=== PATIENT | female | born 1930 | race American Indian/Alaskan Native ===

== ENCOUNTER 2019-01-13 11:19 | Outpatient (CLI) | payer MEDICARE ==
[2019-01-13 14:29] LABS: Blood Urea Nitrogen 11 mg/dL (7-17)
== END 2019-01-13 11:20 | disposition home or self-care (01) ==
LOC: CT 11:19
PROVIDERS: ATTEND Surgery Vascular Surgery
DX: I74.9 Embolism and thrombosis of unspecified artery (principal); I65.23 Occlusion and stenosis of bilateral carotid arteries; I77.1 Stricture of artery; I10 Essential (primary) hypertension; E66.9 Obesity, unspecified; E78.00 Pure hypercholesterolemia, unspecified; K21.9 Gastro-esophageal reflux disease without esophagitis; E11.9 Type 2 diabetes mellitus without complications; Z90.710 Acquired absence of both cervix and uterus
CPT/HCPCS: 36415; 82565; 84520

== ENCOUNTER 2019-01-14 11:26 | Outpatient (CLI) | payer MEDICARE ==
--- NOTE | 2019-01-15 20:31 | Cat Scan Report ---
PROCEDURE: CT ANGIO NECK TECHNIQUE: Computerized tomographic angiography of the neck was performed after the IV injection of iodinated nonionic contrast including image processing. The image data was postprocessed using 2-dime nsional multiplanar reformatted (MPR) and 3-dimensional (MIP and/or volume rendered) techniques. CT DOSE LENGTH PRODUCT: 561.3 mGycm HISTORY: CTA NECK AND CAROTIDS, STRICTURE OF ARTERY COMPARISONS: None . Note: Assessment of carotid artery stenosis is based on measurement of the distal internal carotid a rtery diameter as the denominator for stenosis calculations and the [place] Symptomatic Caroti d Endarterectomy Trial (NASCET) stenosis criteria. FINDINGS: Sinuses: Normal . Non vascular cervical structures: No significant abnormality . Aortic arch: Normal . Brachycephalic artery: Mild degree stenoses noted involving the origin secondary to a calcified plaqu e. Right subclavian artery: A standard is identified in the proximal portion which appears to be patent. A moderate degree focal stenosis is noted immediately distal to the stent.. Right carotid artery: A 70-99% stenosis is noted involving the origin of internal carotid artery sec ondary to a calcified plaque. . Left carotid artery: 50-69% stenosis is noted at the origin of internal carotid artery secondary to calcified plaque. . Vertebral arteries: Right vertebral artery is occluded at the origin with reconstitution at the leve l of C4 . Moderate degree stenoses noted at the origin of left vertebral artery. Other findings: Small subcentimeter nodules are noted in bilateral lobes of thyroid. Diffuse mucosal thickening is noted involving the right maxillary sinus with evidence of prior surgery. Moderate degr ee of degenerative changes are noted involving the cervical spine. 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 70-99% stenosis proximal right internal carotid 50-69% stenosis proximal left internal carotid Right vertebral artery at the origin Moderate degree stenosis left vertebral artery origin Bilateral thyroid nodules : . This document is electronically signed by Jose Guadalupe Devi MD., January 15 2019 08:30:03 PM ET
== END 2019-01-14 11:27 | disposition home or self-care (01) ==
LOC: CT 11:26
PROVIDERS: ATTEND Surgery Vascular Surgery
DX: I65.23 Occlusion and stenosis of bilateral carotid arteries (principal); I74.9 Embolism and thrombosis of unspecified artery; I77.1 Stricture of artery; E04.1 Nontoxic single thyroid nodule; M47.812 Spondylosis without myelopathy or radiculopathy, cervical region; E11.9 Type 2 diabetes mellitus without complications; E66.9 Obesity, unspecified; I10 Essential (primary) hypertension; E78.00 Pure hypercholesterolemia, unspecified; K21.9 Gastro-esophageal reflux disease without esophagitis; M19.90 Unspecified osteoarthritis, unspecified site; Z90.710 Acquired absence of both cervix and uterus
CPT/HCPCS: 70498; Q9967

== ENCOUNTER 2019-12-04 16:36 | Emergency (ER) | payer MEDICARE ==
[2019-12-04] MEDS ORDERED: ONDANSETRON 4 MG/2 ML INJ IV ONE ×2 (17:47→18:40)
--- NOTE | 2019-12-04 17:53 | Emergency Department Report ---
Chief Complaint: Abdominal Pain Stated Complaint: ABD PAIN Time Seen by Provider: 12/04/19 17:44 - HPI History of Present Illness: 89 y/o M p/w a cc of ABd Pain and constipation. Pt states she's been constipated x 1.5 weeks. Pt c/o renita ap for the same time. Pt has taken miralax but it hasnt helped. Pt states she took a liquid otc motility agent but she began vomiting afterwards. Pt took a fleets enema and states she passed a minimal amount of stool.. Pt is unable to eat 2/2 n/v - Exam Vital Signs: Vital Signs 12/04/19 17:05 Temperature 98.1 F Pulse Rate 92 H Respiratory 20 Rate Blood Pressure 146/60 O2 Sat by Pulse 100 Oximetry MSE screening note: Focused history and physical exam performed. Due to findings the following was ordered: cbc, cmp, lipase ct abd/pelvis ED Disposition for MSE Condition: Stable Instructions: Abdominal Pain (ED)
[2019-12-04 18:10] LABS: Basophils # (Auto) 0.1 K/mm3 (0.0-0.1); Basophils % (Auto) 1.2 % (0.0-1.8); Eosinophils # (Auto) 0.1 K/mm3 (0.0-0.4); Eosinophils % (Auto) 0.6 % (0.0-4.3); Hematocrit 42.9 % (30.3-42.9); Hemoglobin 14.2 gm/dl (10.1-14.3); Lymphocytes # (Auto) 1.6 K/mm3 (1.2-5.4); Mean Corpuscular HGB Conc 33 % (30-34); Mean Corpuscular Volume 79 fl (79-97); Monocytes # (Auto) 0.6 K/mm3 (0.0-0.8); Monocytes % (Auto) 5.4 % (0.0-7.3); Red Blood Count 5.42 M/mm3 (3.65-5.03); Red Cell Distribution Width 19.4 % (13.2-15.2)
[2019-12-04 18:16] LABS: Platelet Count 417 K/mm3 (140-440)
[2019-12-04 18:20] LABS: INR 0.98 (0.87-1.13)
[2019-12-04 18:21] LABS: Partial Thromboplastin Time 26.1 Sec. (24.2-36.6)
[2019-12-04 18:37] LABS: BUN/Creatinine Ratio TNR; Blood Urea Nitrogen TNR mg/dL (7-17)
[2019-12-04 18:38] LABS: Alanine Aminotransferase TNR units/L (7-56); Albumin TNR g/dL (3.9-5); Calcium TNR mg/dL (8.4-10.2); Hemolysis Index 1237
[2019-12-04] MEDS ORDERED: ACETAMINOPHEN 325 MG/10.15 ML ORAL LIQD UNIT DOSE PO ONE (18:40)
[2019-12-04] MEDS ORDERED: SODIUM CHLORIDE 0.9% 250ML 250 ML IV ONE (18:40)
--- NOTE | 2019-12-04 18:41 | Emergency Department Report ---
ED General Adult HPI - General Chief complaint: Abdominal Pain Stated complaint: ABD PAIN Time Seen by Provider: 12/04/19 17:44 Source: patient, family, RN notes reviewed, old records reviewed Mode of arrival: Ambulatory Limitations: Physical Limitation - History of Present Illness Initial comments: The patient is an 89-year-old female. The patient is not known to myself previously. She has a history of gout, hypertension, diabetes, distant history of abdominal hysterectomy, her primary care doctor is Dr. Whitfield She presents to the ER with a complaint of abdominal pain and possible constipation. She reports that she feels "blocked up." She indicates that she has pain in her epigastric and right upper quadrant region. She is not been defecating normally. She endorses numerous outpatient evaluations by her primary care doctor, she is taking MiraLAX, and other medications [id number]. There is no headache, neck pain, chest pain, there is no exertional shortness of breath which is new or different and she denies irritative and obstructive urinary symptoms. She also has a history of pancreatitis. Her abdominal pain is throbbing, and increases with palpation and decreases with rest, and does not radiate anywhere. -: Gradual, week(s) Location: abdomen Quality: other Consistency: other Improves with: other Worsens with: other Associated Symptoms: other - Related Data Home Medications Medication Instructions Recorded Confirmed Last Taken Insulin NPH/Regular [NovoLIN 70/30] 25 units SQ BID 12/13/13 11/23/15 11/21/15 amLODIPine 10 mg PO DAILY 12/13/13 11/23/15 11/21/15 Furosemide 40 mg PO BID 11/22/15 11/23/15 11/21/15 Hydralazine HCl [Apresoline TAB] 50 mg PO BID 11/22/15 11/23/15 11/22/15 Losartan Potassium 50 mg PO BID 11/22/15 11/23/15 11/22/15 Tramadol HCl [traMADol] 50 mg PO BID PRN 11/22/15 11/23/15 11/22/15 cloNIDine HCL [Clonidine HCl] 0.2 mg PO QDAY 11/22/15 11/23/15 11/21/15 Previous Rx's Medication Instructions Recorded Last Taken Type Clopidogrel [Plavix] 75 mg PO QDAY #30 tablet 11/22/15 Unknown Rx Acetaminophen [Non-Aspirin Extra 500 mg PO Q6HR PRN #30 tablet 12/04/19 Unknown Rx Strength] Allergies Allergy/AdvReac Type Severity Reaction Status Date / Time clarithromycin [From Biaxin] Allergy Rash Verified 12/13/13 16:24 codeine Allergy Rash Verified 12/13/13 16:24 metronidazole [From Flagyl] Allergy Rash Verified 12/13/13 16:24 Metronidazole HCl Allergy Rash Verified 12/13/13 16:24 [From Flagyl] Penicillins Allergy Rash Verified 12/13/13 16:24 ED Review of Systems ROS: Stated complaint: ABD PAIN Other details as noted in HPI Constitutional: denies: fever Eyes: denies: eye discharge ENT: denies: congestion Respiratory: denies: wheezing Cardiovascular: denies: syncope Gastrointestinal: abdominal pain, constipation Genitourinary: denies: dysuria Neurological: weakness Hematological/Lymphatic: denies: easy bleeding ED Past Medical Hx - Past Medical History Previous Medical History?: Yes Hx Hypertension: Yes Hx Heart Attack/AMI: No Hx Congestive Heart Failure: No Hx Diabetes: Yes Hx Deep Vein Thrombosis: No Hx Pulmonary Embolism: No Hx GERD: Yes Hx Liver Disease: No Hx Renal Disease: No Hx Sickle Cell Disease: No Hx Arthritis: Yes Hx Headaches / Migraines: No Hx Seizures: No Hx Kidney Stones: No Hx Asthma: No Hx COPD: No Hx Tuberculosis: No Hx HIV: No Additional medical history: pancreatitis (2011) - Surgical History Past Surgical History?: Yes Hx Coronary Stent: No Hx Open Heart Surgery: No Hx Pacemaker: No Hx Internal Defibrillator: No Hx Cholecystectomy: No Hx Appendectomy: No Hx Breast Surgery: No Additional Surgical History: Peripheral Vascular Stent to right arm. - Social History Smoking Status: Former Smoker Substance Use Type: Prescribed - Medications Home Medications: Home Medications Medication Instructions Recorded Confirmed Last Taken Type Insulin NPH/Regular [NovoLIN 70/30] 25 units SQ BID 12/13/13 11/23/15 11/21/15 History amLODIPine 10 mg PO DAILY 12/13/13 11/23/15 11/21/15 History Clopidogrel [Plavix] 75 mg PO QDAY #30 tablet 11/22/15 11/23/15 Unknown Rx Furosemide 40 mg PO BID 11/22/15 11/23/15 11/21/15 History Hydralazine HCl [Apresoline TAB] 50 mg PO BID 11/22/15 11/23/15 11/22/15 History Losartan Potassium 50 mg PO BID 11/22/15 11/23/15 11/22/15 History Tramadol HCl [traMADol] 50 mg PO BID PRN 11/22/15 11/23/15 11/22/15 History cloNIDine HCL [Clonidine HCl] 0.2 mg PO QDAY 11/22/15 11/23/15 11/21/15 History Acetaminophen [Non-Aspirin Extra 500 mg PO Q6HR PRN #30 tablet 12/04/19 Unknown Rx Strength] ED Physical Exam - General Limitations: Physical Limitation General appearance: alert, in no apparent distress, obese - Head Head exam: Present: atraumatic, normocephalic - Eye Eye exam: Present: normal appearance, EOMI. Absent: nystagmus - ENT ENT exam: Present: normal exam, normal orophraynx, mucous membranes moist, normal external ear exam - Neck Neck exam: Present: normal inspection, full ROM. Absent: tenderness, meningismus - Respiratory Respiratory exam: Present: normal lung sounds bilaterally. Absent: respiratory distress - Cardiovascular Cardiovascular Exam: Present: regular rate, normal rhythm, normal heart sounds. Absent: bradycardia, tachycardia, irregular rhythm, systolic murmur, diastolic murmur, rubs, gallop - GI/Abdominal GI/Abdominal exam: Present: soft, tenderness, other (There is epigastric tenderness, there is right upper quadrant tenderness). Absent: distended, guarding, rebound, rigid, pulsatile mass - Extremities Exam Extremities exam: Present: normal inspection, full ROM, pedal edema (1+ edema noted in the bilateral lower extremity), other (2+ pulses noted in the bilateral upper and lower extremities. There is no palpable cord. negative Homans sign. Muscular compartments are soft. The pelvis is stable.). Absent: calf tenderness - Back Exam Back exam: Present: normal inspection. Absent: tenderness, CVA tenderness (R), paraspinal tenderness, vertebral tenderness - Neurological Exam Neurological exam: Present: alert, other (There is no facial droop. The tongue is midline. Extraocular movements are intact bilaterally. There is 5 out of 5 strength in bilateral upper and lower extremities. Sensation is intact to light touch bilateral upper and lower extremities. ). Absent: motor sensory deficit - Psychiatric Psychiatric exam: Present: normal mood - Skin Skin exam: Present: warm, dry, intact, normal color. Absent: rash ED Course Vital Signs 12/04/19 12/04/19 12/04/19 17:05 18:57 19:00 Temperature 98.1 F Pulse Rate 92 H 93 H 93 H Respiratory 20 14 12 Rate Blood Pressure 146/60 Blood Pressure [Left] O2 Sat by Pulse 100 99 Oximetry 12/04/19 12/04/19 12/04/19 19:16 19:30 19:46 Temperature Pulse Rate 90 97 H 86 Respiratory 23 13 14 Rate Blood Pressure Blood Pressure [Left] O2 Sat by Pulse 99 97 98 Oximetry 12/04/19 12/04/19 12/04/19 20:00 20:16 21:17 Temperature 97.9 F Pulse Rate 90 85 85 Respiratory 20 18 14 Rate Blood Pressure Blood Pressure 180/63 [Left] O2 Sat by Pulse 99 98 97 Oximetry - Reevaluation(s) Reevaluation #1: 12/04/19 20:27 Differential diagnosis, including but not limited to: Cholecystitis, pancreatitis, colitis, obstruction, constipation, urinary tract infection Assessment and plan: 89-year-old female with a complaint of abdominal pain, and probable constipation. She is tender in her epigastric and right upper quadrant region. She is afebrile with reassuring vital signs. She is not tachycardic, tachypneic or hypoxic. History suggest constipation versus obstruction versus obstipation. Given advanced age, CT scan of the abdomen pelvis will be obtained. Please note that secondary to technical issues dealing with acquisition of the patient's laboratory studies, it took a long time for labs to result, as well as CT scan to be performed. A right upper quadrant ultrasound is being performed as well Reevaluation #2: 12/04/19 22:03 CT scan reviewed and appreciated. Belly soft on repeat exam. Tolerating liquid feeds. Laboratory studies reviewed and appreciated. Extensive discussion had with patient and her family member/power of bankruptcy attorney, regarding significance of CT scan findings. We have discussed the need to urgently follow-up with outpatient primary care to coordinate further outpatient diagnostic work-up. We also had a prolonged discussion about goals of care and advanced directives. Patient and family were specifically informed that her CT scan was concerning for cancer, tumor, malignancy, possible metastatic disease, and they would need to closely follow-up with outpatient primary care, or oncology, to coordinate further outpatient care. Laboratory studies reviewed and appreciated, dehydration is appreciated, symptoms have been going on for almost 2 weeks. Patient and family member understand the need to closely follow-up as an outpatient. Return precautions are reviewed. 12/04/19 22:15 ED Medical Decision Making - Lab Data Result diagrams: 12/04/19 Unknown 12/04/19 Unknown Vital Signs 12/04/19 12/04/19 12/04/19 17:05 18:57 19:00 Temperature 98.1 F Pulse Rate 92 H 93 H 93 H Respiratory 20 14 12 Rate Blood Pressure 146/60 O2 Sat by Pulse 100 99 Oximetry 12/04/19 12/04/19 12/04/19 19:16 19:30 19:46 Temperature Pulse Rate 90 97 H 86 Respiratory 23 13 14 Rate Blood Pressure O2 Sat by Pulse 99 97 98 Oximetry 12/04/19 12/04/19 20:00 20:16 Temperature Pulse Rate 90 85 Respiratory 20 18 Rate Blood Pressure O2 Sat by Pulse 99 98 Oximetry Lab Results 12/04/19 12/04/19 12/04/19 Range/Units 18:54 Unknown Unknown WBC 10.7 (4.5-11.0) K/mm3 RBC 5.42 H (3.65-5.03) M/mm3 Hgb 14.2 (10.1-14.3) gm/dl Hct 42.9 (30.3-42.9) % MCV 79 (79-97) fl MCH 26 L (28-32) pg MCHC 33 (30-34) % RDW 19.4 H (13.2-15.2) % Plt Count 417 (140-440) K/mm3 Lymph % (Auto) 15.0 (13.4-35.0) % [place] % (Auto) 5.4 (0.0-7.3) % Eos % (Auto) 0.6 (0.0-4.3) % Baso % (Auto) 1.2 (0.0-1.8) % Lymph # 1.6 (1.2-5.4) K/mm3 [place] # 0.6 (0.0-0.8) K/mm3 Eos # 0.1 (0.0-0.4) K/mm3 Baso # 0.1 (0.0-0.1) K/mm3 Seg Neutrophils % 77.8 H (40.0-70.0) % Seg Neutrophils # 8.3 H (1.8-7.7) K/mm3 PT (12.2-14.9) Sec. INR (0.87-1.13) APTT (24.2-36.6) Sec. Sodium 141 TNR (137-145) mmol/L Potassium 4.2 TNR (3.6-5.0) mmol/L Chloride 101.8 TNR (98-107) mmol/L Carbon Dioxide 16 L TNR (22-30) mmol/L Anion Gap 27 TNR mmol/L BUN 8 TNR (7-17) mg/dL Creatinine 0.8 TNR (0.7-1.2) mg/dL Estimated GFR > 60 TNR ml/min BUN/Creatinine Ratio 10 TNR % Glucose 99 TNR (65-100) mg/dL Calcium 10.6 H TNR (8.4-10.2) mg/dL Magnesium 2.10 (1.7-2.3) mg/dL Total Bilirubin 0.50 TNR (0.1-1.2) mg/dL AST 14 TNR (5-40) units/L ALT < 5 L TNR (7-56) units/L Alkaline Phosphatase 110 TNR (35-129) units/L Total Creatine Kinase 76 (30-135) units/L Total Protein 8.1 TNR (6.3-8.2) g/dL Albumin 4.3 TNR (3.9-5) g/dL Albumin/Globulin Ratio 1.1 TNR % Lipase 32 TNR (13-60) units/L 12/04/19 12/04/19 Range/Units Unknown Unknown WBC (4.5-11.0) K/mm3 RBC (3.65-5.03) M/mm3 Hgb (10.1-14.3) gm/dl Hct (30.3-42.9) % MCV (79-97) fl MCH (28-32) pg MCHC (30-34) % RDW (13.2-15.2) % Plt Count (140-440) K/mm3 Lymph % (Auto) (13.4-35.0) % [place] % (Auto) (0.0-7.3) % Eos % (Auto) (0.0-4.3) % Baso % (Auto) (0.0-1.8) % Lymph # (1.2-5.4) K/mm3 [place] # (0.0-0.8) K/mm3 Eos # (0.0-0.4) K/mm3 Baso # (0.0-0.1) K/mm3 Seg Neutrophils % (40.0-70.0) % Seg Neutrophils # (1.8-7.7) K/mm3 PT 13.1 (12.2-14.9) Sec. INR 0.98 (0.87-1.13) APTT 26.1 (24.2-36.6) Sec. Sodium (137-145) mmol/L Potassium (3.6-5.0) mmol/L Chloride (98-107) mmol/L Carbon Dioxide (22-30) mmol/L Anion Gap mmol/L BUN (7-17) mg/dL Creatinine (0.7-1.2) mg/dL Estimated GFR ml/min BUN/Creatinine Ratio % Glucose (65-100) mg/dL Calcium (8.4-10.2) mg/dL Magnesium TNR (1.7-2.3) mg/dL Total Bilirubin (0.1-1.2) mg/dL AST (5-40) units/L ALT (7-56) units/L Alkaline Phosphatase (35-129) units/L Total Creatine Kinase TNR (30-135) units/L Total Protein (6.3-8.2) g/dL Albumin (3.9-5) g/dL Albumin/Globulin Ratio % Lipase (13-60) units/L - EKG Data -: EKG Interpreted by Hi EKG shows normal: sinus rhythm Rate: normal - EKG Data 12/04/19 20:27 Sinus rhythm, 94 bpm, normal axis, the QTC is 484 ms, there is low voltage, there is poor R wave progression, no endorsement of chest pain, not consistent with ST elevation myocardial infarction - Radiology Data Radiology results: pending Critical care attestation.: If time is entered above; I have spent that time in minutes in the direct care of this critically ill patient, excluding procedure time. ED Disposition Clinical Impression: Abdominal pain Disposition: DC- TO HOME OR SELFCARE Is pt being admited?: No Does the pt Need Aspirin: No Condition: Stable Additional Instructions: Advance diet as tolerated. Do not take metformin medication for the next 2 days, if patient takes this medication. Avoid consumption of Motrin, ibuprofen, Naprosyn, Aleve. Take Tylenol [id number], 650 mg with food, every 4-6 hours. Recommend patient follow-up with an outpatient primary care doctor or oncologist as soon as possible. CT scan abdomen pelvis demonstrated possible peritoneal carcinomatosis, suggestive of cancer, tumor, malignancy. Patient was also found to have a left-sided abdominal mass, nonspecific right-sided kidney mass, and nonspecific left-sided adrenal gland mass. Return to the emergency room right away with new, worsened or different symptoms, or symptoms not present on the initial emergency room evaluation Prescriptions: Acetaminophen [Non-Aspirin Extra Strength] 500 mg PO Q6HR PRN #30 tablet PRN Reason: Pain , Severe (7-10) Referrals: MAIKOL TREVINO MD [Primary Care Provider] - 3-5 Days HOWARD LEA MD [Staff Physician] - 3-5 Days KRISTY WATTS MD [Staff Physician] - 3-5 Days LESLY FARIA MD [Staff Physician] - 3-5 Days
[2019-12-04 19:56] LABS: Alanine Aminotransferase < 5 units/L (7-56); Albumin 4.3 g/dL (3.9-5); BUN/Creatinine Ratio 10; Blood Urea Nitrogen 8 mg/dL (7-17); Calcium 10.6 mg/dL (8.4-10.2); Hemolysis Index 54
[2019-12-04 20:29] LABS: Bilirubin,Urine NEG (Negative); Blood,Urine SM (Negative); Color,Urine Yellow (Yellow); Mucus,Urine 1+ /HPF; Urobilinogen,Urine < 2.0 mg/dL (<2.0); WBC,Urine < 1.0 /HPF (0.0-6.0)
[2019-12-04] MEDS ORDERED: FAMOTIDINE 20 MG/2 ML INJ IV ONE (20:50)
--- NOTE | 2019-12-04 21:10 | Ultrasound Report ---
ULTRASOUND ABDOMEN, LIMITED (RIGHT UPPER QUADRANT) INDICATION / CLINICAL INFORMATION: ruq pain. COMPARISON: None available. FINDINGS: PANCREAS: Not well visualized due to overlying bowel gas. LIVER: No significant abnormality. GALLBLADDER: No significant abnormality. BILE DUCTS: No significant abnormality. Common bile duct measures 1.0 mm. FREE FLUID: None. ADDITIONAL FINDINGS: Right kidney appears within normal limits. IMPRESSION: 1. No significant sonographic abnormality of the right upper quadrant. Signer Name: Piotr Diaz MD Signed: 12/04/2019 9:06 PM Workstation Name: [id number]
--- NOTE | 2019-12-04 21:39 | Cat Scan Report ---
CT abdomen pelvis w con INDICATION / CLINICAL INFORMATION: abd pain ruq pain, hx pancreatitis, sbo. TECHNIQUE: Axial CT imaging of abdomen and pelvis was obtained with IV contrast. Coronal and sagittal reformatte d imaging obtained and reviewed. All CT scans at this location are performed using CT dose reduction for ALARA by means of automated exposure control. COMPARISON: None available. FINDINGS: CT abdomen with contrast demonstrates normal appearance of the liver, spleen, pancreas, and gallbladd er. There are small simple cyst in both kidneys. There is a hypodense mass in the lower pole the righ t kidney measuring 2.3 cm that may be solid. There is marked omental nodularity in the anterior abdomen. Small amount of scattered ascites is seen throughout the abdomen as well. The appearance is very worrisome for peritoneal carcinomatosis. The left adrenal gland contains a irregular heterogeneous mass measuring 3 cm. Right adrenal gland is unr emarkable. Significant atherosclerotic disease throughout the abdominal aorta and common iliac arteries. CT pelvis does not demonstrate a mass. Diverticulosis is present. Small amount of free fluid is prese nt. Mild bilateral inguinal adenopathy is noted. There is a calcified mass in the left side of the lo wer abdomen, just anterior to the left common iliac artery measuring 3.4 cm. The uterus and ovaries a re not identified. Visualized lung bases demonstrate small bilateral pleural effusions with bibasilar atelectasis. No wolfe ggestion of pneumonia or pulmonary nodules within the visualized lung bases. No significant acute osseous abnormality. There is prominent degenerative change and multilevel degen erative disease involving the visualized spine. IMPRESSION: 1. This is an abnormal CT scan. There is prominent omental nodularity with associated ascites within the abdomen. The appearance is very suggestive for peritoneal carcinomatosis. The primary malignancy is not identified. If clinically warranted, PET CT could be performed to help identify primary site o f malignancy. 2. 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 3. There is a calcified left-sided abdominal mass. This is nonspecific. A carcinoid tumor is not excl uded. However there is not the typical desmoplastic reaction surrounding this calcified mass that is normally seen with carcinoid tumors. 4. Solid appearing right renal mass measuring 2.3 cm. 5 small bilateral pleural effusions with bibasi lar atelectasis. Signer Name: Essie Alvarado MD Signed: 12/04/2019 9:35 PM Workstation Name: [id number]
[2019-12-04 22:19] VITALS: BP 150/67
== END 2019-12-04 22:27 | disposition home or self-care (01) ==
LOC: ED 16:36
DX: R10.13 Epigastric pain (principal); R10.11 Right upper quadrant pain; I10 Essential (primary) hypertension; E11.9 Type 2 diabetes mellitus without complications; K21.9 Gastro-esophageal reflux disease without esophagitis; Z87.891 Personal history of nicotine dependence; Z79.899 Other long term (current) drug therapy; Z79.4 Long term (current) use of insulin; Z88.0 Allergy status to penicillin; Z88.1 Allergy status to other antibiotic agents; Z88.6 Allergy status to analgesic agent
CPT/HCPCS: 36415; 74177; 76705; 80053; 81001; 82550; 82962; 83690; 83735; 85025; 85610; 85730; 93005; 93010; 96374; 96375; 99285; J2405; J7050; Q9967

== ENCOUNTER 2019-12-14 10:34 | Day surgery (SDC) | payer MEDICARE ==
[2019-12-14 11:44] LABS: INR 0.97 (0.87-1.13)
[2019-12-14 13:21] VITALS: BP 158/89
--- NOTE | 2019-12-14 15:28 | Ultrasound Report ---
Limited abdominal ultrasound. HISTORY: Ascites. FINDINGS: Limited amount of fluid seen at the left upper quadrant. Signer Name: Darci Love MD Signed: 12/14/2019 3:24 PM Workstation Name: [id number]
== END 2019-12-14 13:45 | disposition home or self-care (01) ==
LOC: US 10:34 → CATHLABREC 10:34 → EDSTATUS 12:00 → CATHLABREC 13:45
PROVIDERS: ATTEND Internal Medicine Hematology & Oncology
DX: R18.8 Other ascites (principal); C48.2 Malignant neoplasm of peritoneum, unspecified; E66.9 Obesity, unspecified; E13.9 Other specified diabetes mellitus without complications; I42.9 Cardiomyopathy, unspecified; E78.00 Pure hypercholesterolemia, unspecified; I10 Essential (primary) hypertension; K21.9 Gastro-esophageal reflux disease without esophagitis; M19.90 Unspecified osteoarthritis, unspecified site; Z88.0 Allergy status to penicillin; Z79.899 Other long term (current) drug therapy; Z88.5 Allergy status to narcotic agent; Z79.4 Long term (current) use of insulin; Z87.891 Personal history of nicotine dependence; Z98.41 Cataract extraction status, right eye; Z98.42 Cataract extraction status, left eye; Z68.29 Body mass index [BMI] 29.0-29.9, adult; Z90.710 Acquired absence of both cervix and uterus; Z80.1 Family history of malignant neoplasm of trachea, bronchus and lung; Z80.8 Family history of malignant neoplasm of other organs or systems; Z83.3 Family history of diabetes mellitus; Z82.49 Family history of ischemic heart disease and other diseases of the circulatory system
CPT/HCPCS: 36415; 76705; 85610